=== PATIENT | male | born 1945 | race American Indian/Alaskan Native ===

== ENCOUNTER 2016-11-16 18:08 | Emergency (ER) | payer OTHER, MEDICARE ==
[2016-11-16 18:27] VITALS: BP 161/71
[2016-11-16] MEDS ORDERED: TYLENOL PO ONE (21:56)
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
== END 2016-11-16 23:34 | disposition home or self-care (01) ==
LOC: ED 18:08
DX: M54.2 Cervicalgia (principal); E11.9 Type 2 diabetes mellitus without complications; V89.2XXA Person injured in unspecified motor-vehicle accident, traffic, initial encounter; Y93.9 Activity, unspecified; Y99.9 Unspecified external cause status; Y92.410 Unspecified street and highway as the place of occurrence of the external cause
CPT/HCPCS: 70450; 72125; 99283

== ENCOUNTER 2017-08-25 08:49 | Outpatient (CLI) | payer MEDICARE ==
--- NOTE | 2017-08-25 10:31 | Ultrasound Report ---
ULTRASOUND TESTICULAR DOPPLER COMPLETE INDICATION: Disorder of male genital organs. COMPARISON: 07/19/2011. FINDINGS: Longitudinal and transverse grayscale and color flow sonographic evaluation of the scrotum and its contents performed. Normal testicular contours with preserved blood flow, though echotexture again somewhat heterogeneous. No discrete lesions at this time with small 7 mm inferior left testicular cyst previously now not identified. Right testicle measures 5 x 1.9 x 3.1 cm. Left testicle measures 4.3 x 2.6 x 2.9 cm. No significant hydrocele on the right. Small left hydrocele again noted. Right epididymal head measures 1.2 x 1 cm, image 17. Left epididymal head is 1.6 x 1 cm, image 35. However, bilateral epididymal body and tail appear prominent/heterogeneous with slight increased blood flow. CONCLUSION: Mild bilateral epididymitis involving the body/tail suspected sonographically with few other findings, including a small left hydrocele again noted, as described. No evidence of testicular torsion. Please correlate. Thank you for the opportunity to participate in this patient's care.
== END 2017-08-25 08:50 | disposition home or self-care (01) ==
LOC: US 08:49
PROVIDERS: ATTEND Urology
DX: N43.3 Hydrocele, unspecified (principal); N50.9 Disorder of male genital organs, unspecified
CPT/HCPCS: 93975

== ENCOUNTER 2021-02-23 23:16 | Emergency (ER) | payer MEDICARE ==
[2021-02-23 23:36] VITALS: BP 193/82
[2021-02-24] MEDS ORDERED: INSULIN REGULAR, HUMAN 100 UNITS/1 ML SUB-Q ONE (04:28)
[2021-02-24] MEDS ORDERED: amLODIPine 5 MG TAB PO ONE (04:28)
--- NOTE | 2021-02-24 04:29 | Emergency Department Report ---
ED General Adult HPI - General Chief complaint: Hyperglycemia Stated complaint: My sugar is high, I want to make sure it is not in the danger zone Time Seen by Provider: 02/24/21 04:20 Source: patient, RN notes reviewed, old records reviewed Mode of arrival: Ambulatory Limitations: No Limitations - History of Present Illness Initial comments: This patient is a pleasant and cooperative 75-year-old gentleman, with a past medical history of hypertension, diabetes, body mass index of 39, chronic arthritic pain and radicular pain, who presents to the ER today with request for medical insurance. He reports that he has been compliant with his outpatient diabetic medication, trajenda, compliant with outpatient diabetic diet, with glucose typically running in the low 100s, presenting today with a complaint of painless hyperglycemia. He denies additional complaints. He is concerned that his hyperglycemia is "in the danger zone." He currently denies headache, neck pain, chest pain, abdominal pain, vomiting, dysuria, new/different back pain, and new/different lower extremity pain. -: Sudden Improves with: none Worsens with: none - Related Data Previous Rx's Medication Instructions Recorded Last Taken Type HYDROcodone/APAP 10-325 [[place] 1 each PO Q8HR PRN #30 tablet 01/15/15 Unknown Rx 10/325] Cyclobenzaprine [Flexeril] 10 mg PO TID PRN #12 tablet 11/16/16 Unknown Rx Naproxen [Naprosyn TAB] 375 mg PO BID PRN #25 tablet 11/16/16 Unknown Rx Allergies Allergy/AdvReac Type Severity Reaction Status Date / Time No Known Allergies Allergy Verified 01/15/15 10:10 ED Review of Systems ROS: Stated complaint: HIGH BP Other details as noted in HPI Constitutional: denies: fever Eyes: denies: eye discharge ENT: denies: epistaxis Respiratory: denies: cough Cardiovascular: denies: chest pain Gastrointestinal: denies: abdominal pain Genitourinary: denies: dysuria Musculoskeletal: back pain (Chronic), arthralgia (Chronic) Neurological: denies: weakness ED Past Medical Hx - Past Medical History Previous Medical History?: Yes Hx Diabetes: Yes Additional medical history: prostate CA 2005 - Surgical History Past Surgical History?: Yes Additional Surgical History: Prostate surgery. Bilatteral knee arthroscopy - Social History Smoking Status: Never Smoker Substance Use Type: None - Medications Home Medications: Home Medications Medication Instructions Recorded Confirmed Last Taken Type HYDROcodone/APAP 10-325 [[place] 1 each PO Q8HR PRN #30 tablet 01/15/15 Unknown Rx 10/325] Cyclobenzaprine [Flexeril] 10 mg PO TID PRN #12 tablet 11/16/16 Unknown Rx Naproxen [Naprosyn TAB] 375 mg PO BID PRN #25 tablet 11/16/16 Unknown Rx ED Physical Exam - General Limitations: No Limitations General appearance: alert, in no apparent distress, obese - Head Head exam: Present: atraumatic, normocephalic - Eye Eye exam: Present: normal appearance, EOMI. Absent: nystagmus - ENT ENT exam: Present: normal exam, normal orophraynx, mucous membranes moist, normal external ear exam - Neck Neck exam: Present: normal inspection, full ROM. Absent: tenderness - Respiratory Respiratory exam: Present: normal lung sounds bilaterally. Absent: respiratory distress, wheezes, rales, rhonchi, stridor, decreased breath sounds - Cardiovascular Cardiovascular Exam: Present: regular rate, normal rhythm, normal heart sounds. Absent: bradycardia, tachycardia, irregular rhythm, systolic murmur, diastolic murmur, rubs, gallop - GI/Abdominal GI/Abdominal exam: Present: soft. Absent: distended, tenderness, guarding, rebound, rigid, pulsatile mass - Rectal Rectal exam: Present: deferred - Extremities Exam Extremities exam: Present: normal inspection, full ROM, other (2+ pulses noted in the bilateral upper extremities. There is no long bony tenderness. The muscular compartments are soft.). Absent: calf tenderness - Back Exam Back exam: Present: normal inspection. Absent: tenderness, CVA tenderness (R), CVA tenderness (L), paraspinal tenderness, vertebral tenderness - Neurological Exam Neurological exam: Present: alert, oriented X3, normal gait, other (No facial droop. Tongue midline. Extraocular movements intact bilaterally. Facial sensation intact to light touch in V1, V2, V3 distribution bilaterally. 5 and a 5 strength in 4 extremities. Sensation intact to light touch in 4 ex tremities.). Absent: motor sensory deficit - Psychiatric Psychiatric exam: Present: normal affect, normal mood - Skin Skin exam: Present: warm, dry, intact, normal color. Absent: rash ED Course Vital Signs 02/23/21 23:31 Temperature 98.0 F Pulse Rate 81 Respiratory 18 Rate Blood Pressure 193/82 O2 Sat by Pulse 100 Oximetry - Reevaluation(s) Reevaluation #1: 02/24/21 05:22 Differential diagnosis, including but not limited to: Hyperglycemia, hypertension, encounter for medical screening examination, diabetic ketoacidosis Assessment and plan: 75-year-old gentleman, who was afebrile, with reassuring vital signs with exception of chronic hypertension, which has been demonstrated on prior visits, presenting to the ER today with a request for medical evaluation in the context of hyperglycemia. Denies dysuria, polyuria, frequency, chest pain, cough, new/different shortness of breath. He is ambulatory with a cane, and in no acute distress. Suspect simple hyperglycemia. We will medicate him with Norvasc for his elevated blood pressure which is chronic, and empirically treated with 6 units of subcu insulin. Patient is agreeable to basic metabolic panel at this time. He also has follow-up with a primary care doctor on Friday. He does state that he would like to be discharged to follow-up with his outpatient primary care doctor. 02/24/21 05:50 Laboratory studies reviewed and appreciated. By my calculation, anion gap 18. He has mild dehydration. Accu-Chek in the 300s on basic metabolic panel. He has follow-up with his primary care doctor in 2 days. He reports that he is reliable to follow-up as an outpatient. We will discharge this patient to follow-up. Return precautions are reviewed ED Medical Decision Making - Lab Data Result diagrams: 02/24/21 05:04 Vital Signs 02/23/21 23:31 Temperature 98.0 F Pulse Rate 81 Respiratory 18 Rate Blood Pressure 193/82 O2 Sat by Pulse 100 Oximetry Lab Results 02/23/21 Range/Units 23:31 POC Glucose 428 H (70-105) mg/dL Lab Results 02/23/21 02/24/21 Range/Units 23:31 05:04 Sodium 136 L (137-145) mmol/L Potassium 4.3 (3.6-5.0) mmol/L Chloride 97.1 L (98-107) mmol/L Carbon Dioxide 21 L (22-30) mmol/L Anion Gap 22 mmol/L BUN 25 H (9-20) mg/dL Creatinine 1.1 (0.8-1.3) mg/dL Estimated GFR > 60 ml/min BUN/Creatinine Ratio 23 % Glucose 387 H (75-100) mg/dL POC Glucose 428 H (70-105) mg/dL Calcium 10.1 (8.4-10.2) mg/dL Critical care attestation.: If time is entered above; I have spent that time in minutes in the direct care of this critically ill patient, excluding procedure time. ED Disposition Clinical Impression: Hyperglycemia, Elevated blood pressure reading Disposition: HOME / SELF CARE / HOMELESS Is pt being admited?: No Does the pt Need Aspirin: No Condition: Stable Instructions: Hyperglycemia, Hypertension, Adult Additional Instructions: Please continue current outpatient medications. Please drink 3 to 4 cups of water per day. Please adhere to an appropriate diabetic diet. Please reference the [place] [employer] website for diabetic diet recommendations. Patient also found to have chronically elevated blood pressure today. Please make certain to remain compliant with your outpatient blood pressure medications. Please follow-up with your primary care doctor in 2 to 4 days as scheduled. Please return to the emergency room right away with new pain, worsened pain, migration of pain, projectile vomiting, change in mental status, confusion, inability to tolerate liquid feeds, new, worsened or different symptoms not present on the initial emergency room evaluation Referrals: CHRISTINA SELF MD [Primary Care Provider] - 3-5 Days ADILSON ROQUE MD [Staff Physician] - 3-5 Days [facility] [Provider Group] - 3-5 Days
[2021-02-24 05:42] LABS: BUN/Creatinine Ratio 23; Blood Urea Nitrogen 25 mg/dL (9-20); Calcium 10.1 mg/dL (8.4-10.2); Hemolysis Index 2
== END 2021-02-24 06:15 | disposition home or self-care (01) ==
LOC: ED 23:16
DX: E11.65 Type 2 diabetes mellitus with hyperglycemia (principal); I10 Essential (primary) hypertension
CPT/HCPCS: 36415; 80048; 82962; 96372; 99283; Q9967; J1815